=== PATIENT | female | born 1980 | race Caucasian/White ===

== ENCOUNTER 2020-09-05 02:24 | Emergency (ER) | payer OTHER ==
[~2020-09-05] VITALS: Ht 167.6 cm; Wt 77.1 kg
[~2020-09-05 02:24] MED LIST: MACROBID 100 M100 M1 PO; NOHOMEMEDICATIONS; NORFLEX100 MG PO
[2020-09-05] MEDS ORDERED: ATIVAN1 M1 PO (02:32)
[2020-09-05] MEDS ORDERED: VYVANSE30 MG PO (02:32)
[2020-09-05] MEDS ORDERED: FLEXERIL PO (02:32)
[2020-09-05] MEDS ORDERED: LUNESTA3 MG PO (02:32)
[2020-09-05 02:46] LABS: ABSOLUTE BASOPHILS 0.1 thou/uL (0.0-0.2); ABSOLUTE EOSINOPHILS 0.3 thou/uL (0.0-0.7); ABSOLUTE LYMPHOCYTES 3.1 thou/uL (0.8-5.3); ABSOLUTE MONOCYTES 0.7 thou/uL (0.0-1.2); ABSOLUTE NEUTROPHILS 2.9 thou/uL (1.6-8.1); BASOPHILS 0.9 %; EOSINOPHILS 4.8 %; HEMATOCRIT 41.8 % (37.0-47.0); HEMOGLOBIN 14.4 gm/dL (12.0-15.0); LYMPHOCYTES 43.5 %; MCH 31.1 pg (26.0-34.0); MCHC 34.4 g/dL (28.0-37.0); MCV 90.4 fL (80.0-100.0); MONOCYTES 10.1 %; MPV 7.5 fl. (7.2-11.1); NUCLEATED RBCS 0 /100WBC; PLATELET COUNT* 240 thou/uL (150-400); POLYS 40.7 %; RBC 4.63 mil/uL (4.20-5.00); RDW-CV 12.5 % (10.5-14.5); WBC 7.1 thou/uL (4.0-11.0)
[2020-09-05 02:59] LABS: APTT 21.7 Seconds (25.0-31.3); PROTIME 9.6 Seconds (9.20-11.50)
[2020-09-05 03:03] LABS: CALCIUM 8.3 mg/dL (8.5-10.1); CREATININE 0.8 mg/dL (0.6-1.3); POTASSIUM 3.5 mmol/L (3.5-5.1)
[2020-09-05 03:08] LABS: ALBUMIN 3.5 g/dL (3.4-5.0); TOTAL BILIRUBIN 0.2 mg/dL (<0.1-1.0)
[2020-09-05 03:26] LABS: INR < 0.9
[2020-09-05 03:59] LABS: URINE BILIRUBIN NEGATIVE (Negative); URINE BLOOD NEGATIVE (Negative); URINE CLARITY CLEAR; URINE COLOR YELLOW; URINE GLUCOSE-RANDOM NEGATIVE (Negative); URINE KETONES NEGATIVE (Negative); URINE LEUKOCYTES-REFLEX NEGATIVE (Negative); URINE NITRITE-REFLEX NEGATIVE (Negative); URINE PROTEIN NEGATIVE (Negative); URINE SPECIFIC GRAVITY >= 1.030 (1.005-1.030); URINE UROBILINOGEN 0.2 E.U./dl (0.2-1.0)
[2020-09-05] MEDS ORDERED: PREDNISONE 10 M10 M1 PO (04:30)
[2020-09-05] MEDS ORDERED: NAPROSYN500 MG PO (04:31)
[2020-09-05 04:51] VITALS: BP 115/76
--- NOTE | 2020-09-05 13:00 | EKG ---
[place] [address] ELECTROCARDIOGRAM REPORT Name: ISABELL GRIJALVA Room: [facility]#: [id number] Admission: 09/05/20 Attend Phys: Discharge: 09/05/20 Date of : 80 Date of Service: 09/05/20229 Report #: [id number] THIS REPORT FOR: //name// [facility] ED Test Date: 2020-09-05 Test Time: 02:30:45 Pat Name: ISABELL GRIJALVA Department: Room: Gender: Diagnostic Sales Specialist: [place] : 1980 Requested By: Emiliana Finley Order Number: [id number] MD: Jose Major Measurements Intervals [place] Rate: 86 P: 88 [place]: 134 QRS: 83 QRSD: 115 T: 35 QT: 350 QTc: 419 Interpretive Statements Sinus rhythm No previous ECG available for comparison Electronically Signed On 09-05-2020 13:00:13 [employer]JECT/PRODUCTION MANAGER [employer]AGING by Jose Major [email or web address] <ELECTRONICALLY SIGNED> By: Jose Major MD, [facility] 09/05/20 [facility] 9 9 Jose Major MD, FACC /EPI
== END 2020-09-05 04:51 | disposition home or self-care (01) ==
LOC: M.ERS 02:24
PROVIDERS: Personal Emergency Response Attendant
DX: F41.9 Anxiety disorder, unspecified (principal); R07.89 Other chest pain; Z90.710 Acquired absence of both cervix and uterus; Z79.899 Other long term (current) drug therapy; Z88.0 Allergy status to penicillin; Z88.1 Allergy status to other antibiotic agents; Z88.2 Allergy status to sulfonamides; Z91.040 Latex allergy status